=== PATIENT | female | born 1955 | race Caucasian/White ===

== ENCOUNTER 2022-04-15 05:46 | Day surgery (SDC) | payer MEDICARE ==
[2022-04-10 14:39] VITALS: BMI 27.4
[2022-04-15] MEDS ORDERED: SUGAMMADEX SODIUM 200 MG/2 ML VIAL ONE (06:44)
[2022-04-15] MEDS ORDERED: PROPOFOL 60 ML ONE (06:45)
[2022-04-15] MEDS ORDERED: Fentanyl 100 MCG/2 ML VIAL ONE ×2 (06:45→08:58)
[2022-04-15] MEDS ORDERED: Midazolam HCl 2 mg/2 ml Vial ONE (06:45)
[2022-04-15] MEDS ORDERED: Ondansetron PF 4 MG/2 ML Vial ONE (06:45)
[2022-04-15] MEDS ORDERED: Dexamethasone 20 MG/5 ML VIAL ONE (06:45)
[2022-04-15] MEDS ORDERED: Rocuronium Bromide 10 MG/ML (10ML VIAL) ONE (06:45)
[2022-04-15] MEDS ORDERED: EPINEPHrine 1 MG/ML AMP ONE (06:45)
[2022-04-15] MEDS ORDERED: Lidocaine 1% PF 5 ML VIAL ONE (06:46)
[2022-04-15] MEDS ORDERED: Lidocaine 1% MPF 2 ML VIAL ONE (06:49)
[2022-04-15] MEDS ORDERED: Triamcinolone 40 MG/ML VIAL ONE (07:08)
[2022-04-15] MEDS ORDERED: PROPOFOL 20 ML ONE (08:58)
== END 2022-04-15 08:50 | disposition home or self-care (01) ==
LOC: CSHSDC 05:46
PROVIDERS: ATTEND Otolaryngology Otolaryngic Allergy
PROC: 3E0F8GC Introduction of Other Therapeutic Substance into Respiratory Tract, Via Natural or Artificial Opening Endoscopic (ICD-10-PCS; principal; 2022-04-15)
DX: J38.00 Paralysis of vocal cords and larynx, unspecified (principal); R13.12 Dysphagia, oropharyngeal phase; Z79.4 Long term (current) use of insulin; Z79.899 Other long term (current) drug therapy
CPT/HCPCS: 93005; 93010; C1776; J0171; J1100; J2250; J2405; J2704; J3010; J3301